=== PATIENT | male | born 1965 | race Caucasian/White ===

== ENCOUNTER 2022-11-07 14:51 | Emergency (ER) | payer MEDICAID ==
[~2022-11-07] VITALS: Ht 182.9 cm; Wt 83.9 kg
[2022-11-07 15:03] VITALS: BP 130/67
[2022-11-08] MEDS ORDERED: OXAYDO5 M1 PO (14:28)
[2022-11-08] MEDS ORDERED: ONDA4ODT MM (14:29)
== END 2022-11-07 17:08 | disposition home or self-care (01) ==
LOC: ER 14:51
DX: K42.9 Umbilical hernia without obstruction or gangrene (principal); Z88.8 Allergy status to other drugs, medicaments and biological substances; Z88.5 Allergy status to narcotic agent; F17.200 Nicotine dependence, unspecified, uncomplicated
CPT/HCPCS: 99283; A9270

== ENCOUNTER 2023-01-17 12:47 | Inpatient (IN) | payer MEDICAID ==
[~2023-01-17] VITALS: Ht 182.9 cm; Wt 78.3 kg
[~2023-01-17 12:47] MED LIST: ONDA4ODT MM; OXAYDO5 M1 PO
[2023-01-17 14:13] LABS: BASOPHILS ABSOLUTE AUTO 0.02 K/mm3 (0.00-0.23); BASOPHILS PERCENT AUTO 2 % (0-2); EOSINOPHILS ABSOLUTE AUTO 0.19 K/mm3 (0.00-0.68); EOSINOPHILS PERCENT AUTO 14 % (0-6); Hematocrit 38.2 % (37.0-53.0); Hemoglobin 13.3 g/dL (13.5-17.5); IMMATURE GRAN PERCENT AUTO 0 % (0-1); LYMPHOCYTES ABSOLUTE AUTO 0.65 K/mm3 (0.84-5.20); LYMPHOCYTES PERCENT AUTO 47 % (21-46); MONOCYTES ABSOLUTE AUTO 0.16 K/mm3 (0.16-1.47); MONOCYTES PERCENT AUTO 12 % (4-13); Mean Corpuscular HGB 32.2 pg (26.0-34.0); Mean Corpuscular HGB Conc 34.8 g/dL (31.5-36.5); Mean Corpuscular Volume 93 fL (80-100); Mean Platelet Volume 12.7 fL (9.1-12.4); NEUTROPHILS ABSOLUTE AUTO 0.35 K/mm3 (1.96-9.15); NEUTROPHILS PERCENT AUTO 26 % (41-73); RDW Coefficient Variation 17.3 % (11.7-14.2); RDW Standard Deviation 58.5 fL (35.1-46.3); Red Blood Cell Count 4.13 M/mm3 (4.30-5.90); White Blood Cell Count 1.37 K/mm3 (4.00-11.30)
[2023-01-17 14:21] LABS: Platelet Count 46 K/mm3 (150-400)
[2023-01-17 14:43] LABS: Alanine Aminotransfer (ALT/SGP 43 U/L (12-78); Albumin, Blood 2.4 g/dL (3.4-5.0); Albumin/Globulin Ratio 0.6 (0.8-1.8); Alk Phos 137 U/L (50-136); Anion Gap 5 mmol/L (6-16); Aspartate Aminotrans (AST/SGOT 64 U/L (12-37); Bilirubin, Total 3.7 mg/dL (0.1-1.0); Blood Urea Nitrogen 6 mg/dL (8-24); Bun/Creatinine Ratio 9.5 (12.0-20.0); CO2, Blood 25 mmol/L (21-32); Calcium, Blood 7.8 mg/dL (8.5-10.1); Chloride, Blood 115 mmol/L (98-108); Creatinine, Blood 0.63 mg/dL (0.60-1.20); Ethanol (Alcohol), Blood, Med <3 mg/dL; Globulin, Blood 4.3 g/dL (2.2-4.0); Glomerular Filtration Rate 112 (60-); Glucose, Blood 86 mg/dL (70-99); Potassium, Blood 2.8 mmol/L (3.5-5.5); Sodium, Blood 145 mmol/L (136-145); Total Protein, Blood 6.7 g/dL (6.4-8.2)
[2023-01-17 18:03] VITALS: BP 130/80
--- NOTE | 2023-01-17 18:35 | NUR ---
1755 RECEIVED PT TO 343 VIA GURNEY FROM ER. PT ADMITTED FOR HEPATIC ENCEPHALOPATHY. ABLE TO TX SELF TO BED WITH 1P ASSIST. PT HAS TREMORS AND SHAKES, UNABLE TO HOLD CUP TO DRINK. PT'S SKIN IS MOTTLED WITH RASH, SCARS, AND SCABS. PT REPORTS IT R/T CIRRHOSIS. PER ER REPORT FROM [facility], PT WITH HX OF HEP C+ AND CIRRHOSIS. PT IS VERY POOR HISTORIAN AND UNABLE TO ANS MOST QUESTIONS, AND DOES NOT KNOW ANY OF THE MEDICATIONS THAT HE TAKES EITHER. PLEASANT AND CO-OP WITH CARE TO PRESENT. IV KCL INFUSING UPON ADMISSION TO . LR TO BE STARTED WHEN COMPLETE. UA TO BE OBTAINED; URINAL PLACED IN BTHRM AND PT INSTRUCTED TO CALL BEFORE GETTING UP. BED ALARM ON FOR SAFETY. CALL LT IN REACH. LACTULOSE GIVEN PER EMAR.
[2023-01-17 19:58] VITALS: BP 114/67
[2023-01-17 22:38] LABS: Source, Urine Clean Catch
[2023-01-17 22:52] LABS: Appearance, Urine Clear (Clear); Blood, Urine Neg (Neg); Color, Urine Amber (P-Yellow); Glucose Qualitative, Urine Neg (Neg); Ketones, Urine Neg (Neg); Leukocyte Esterase, Urine 1+ (Neg); Nitrite, Urine Neg (Neg); Protein, Urine Neg (Neg); Urobilinogen, Urine 4+ (Normal)
[2023-01-17 22:59] LABS: Bilirubin, Urine 2+ (Neg)
[2023-01-17 23:01] LABS: Bacteria Few /hpf; Red Blood Cells, Urine 0-2 /hpf (0-2); Squamous Epithelial Cells Few /hpf (Few)
[2023-01-17 23:04] LABS: U Cannabinoids Screen DETECTED; U Opiates Screen DETECTED
[2023-01-17 23:05] LABS: U Amphetamine Screen Not Detected; U Barbituate Screen Not Detected; U Benzodiazapine Screen Not Detected; U Buprenorphine Screen Not Detected; U Cocaine Screen Not Detected; U Methadone Screen Not Detected; U Methamphetamine Screen Not Detected; U Oxycodone Screen Not Detected; U Phencyclidine Screen Not Detected; U Propoxyphene Screen Not Detected
[2023-01-18 04:39] LABS: BASOPHILS ABSOLUTE AUTO 0.02 K/mm3 (0.00-0.23); BASOPHILS PERCENT AUTO 1 % (0-2); EOSINOPHILS ABSOLUTE AUTO 0.18 K/mm3 (0.00-0.68); EOSINOPHILS PERCENT AUTO 9 % (0-6); Hematocrit 34.1 % (37.0-53.0); Hemoglobin 11.7 g/dL (13.5-17.5); IMMATURE GRAN PERCENT AUTO 0 % (0-1); LYMPHOCYTES ABSOLUTE AUTO 1.01 K/mm3 (0.84-5.20); LYMPHOCYTES PERCENT AUTO 48 % (21-46); MONOCYTES ABSOLUTE AUTO 0.27 K/mm3 (0.16-1.47); MONOCYTES PERCENT AUTO 13 % (4-13); Mean Corpuscular HGB 32.1 pg (26.0-34.0); Mean Corpuscular HGB Conc 34.3 g/dL (31.5-36.5); Mean Corpuscular Volume 94 fL (80-100); NEUTROPHILS ABSOLUTE AUTO 0.61 K/mm3 (1.96-9.15); NEUTROPHILS PERCENT AUTO 29 % (41-73); RDW Coefficient Variation 17.5 % (11.7-14.2); RDW Standard Deviation 59.7 fL (35.1-46.3); Red Blood Cell Count 3.64 M/mm3 (4.30-5.90); White Blood Cell Count 2.09 K/mm3 (4.00-11.30)
--- NOTE | 2023-01-18 04:43 | NUR ---
SHIFT SUMMARY HEENA IS ALERT AND ORIENTED TO SELF, LOCATION, AND SITUATION. 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 HE IS COVERED IN RASHY RED SPOTS THAT ARE DRY AND IN VARIOUS STAGES OF HEALING, HE HAS SEVERE TREMORS IN HIS ARMS AND HANDS THAT INCREASE WITH SMALL MOTOR MOVEMENTS. HE AMBULATES FINE, BUT IS SHAKEY ENOUGH TO WARRANT SUPERVISION. PT IS CONTINENT AND C/O PAIN IN HIS UMBILICUS, HE DECLINES PAIN MEDICATION THIS SHIFT. HE IS CURRENTLY RESTING IN BED AT LOWEST POSITION, WITH CALL LIGHT IN REACH AND BED ALARM ENGAGED
[2023-01-18 05:18] LABS: Mean Platelet Volume 13.6 fL (9.1-12.4); Platelet Count 46 K/mm3 (150-400)
[2023-01-18 05:19] LABS: Albumin, Blood 1.9 g/dL (3.4-5.0); Albumin/Globulin Ratio 0.5 (0.8-1.8); Bilirubin, Total 2.6 mg/dL (0.1-1.0); Bun/Creatinine Ratio 12.2 (12.0-20.0); Calcium, Blood 7.4 mg/dL (8.5-10.1); Creatinine, Blood 0.66 mg/dL (0.60-1.20); Globulin, Blood 3.8 g/dL (2.2-4.0); Percent Saturation 60.7 % (20.0-50.0); Potassium, Blood 3.1 mmol/L (3.5-5.5); Total Protein, Blood 5.7 g/dL (6.4-8.2)
--- NOTE | 2023-01-18 05:38 | NUR ---
THIS WATER QUALITY ANALYST HAS REVIEWED AND AGREES WITH ALL NOTES AND ASSESSMENTS BY CECELIA DE JESUS.
[2023-01-18 06:00] VITALS: BP 115/79
[2023-01-18] MEDS ORDERED: OXYC5 PO (13:34)
[2023-01-18] MEDS ORDERED: ONDA4ODT PO (13:35)
[2023-01-18 15:46] VITALS: BP 111/73
--- NOTE | 2023-01-18 17:53 | NUR ---
SHIFT SUMMARY: PT ORIENTED TO SELF, PERSON AND SITUATION. PT COOPERATIVE WITH CARE. POWERGLIDE PLACED THIS AM BY LANGUAGE INTERPRETER, GEORGINA. POWERGLIDE FLUSHED WELL BUT DOES NOT DRAW. PT RECEIVED 30GM LACTULOSE THREE TIMES THIS SHIFT. PT STATES IT IS TERRIBLE BUT IS ABLE TO TOLERATE WELL. LR INFUSING @100/HR. PT HAVING EXTREMELY INTOLERABLE TWITCHING/TREMORS IN BILAT LEGS, HANDS, AND ARMS. PT HAVING TO BE FED MOST MEALS DUE TO SHAKINESS. PT BECOMES IRRITATED WHEN UNABLE TO ACCOMPLISH TASKS DUE TO TREMOR. PT IS COVERED IN SCATTERED RED RASH. PT STATES IT IS DUE TO CIRRHOSIS. PT RECEIVED ONE TIME DOSE 40MEQ POTASSIUM. NO C/O PAIN OR N/V THIS SHIFT. BED ALARM ON. CALL LIGHT IN REACH. BED IN LOWEST POSITION. WILL CONTINUE TO MONITOR.
[2023-01-18 19:33] VITALS: BP 132/88
--- NOTE | 2023-01-19 04:27 | NUR ---
SHIFT SUMMARY PT IS ALERT AND ORIENTED TO SELF, LOCATION. AND SITUATION. PT IS ABLE TO MAKE NEEDS KNOWN AND HAS CALLED OUT FOR HELP IN PLACE OF HIS CALL LIGHT, REORIENTED PT TO CALL LIGHT T/O SHIFT. PATIENT WAS ABLE TO GET SLEEP OFF AND ON T/O SHIFT WITH UNLABORED, EVEN RESPIRATION. PT'S TEMORS APPEAR TO INCREASE WITH SMALL MOTOR MOVEMENTS. PT BED IS IN THE LOWEST POSITION. CALL LIGHT WITHIN REACH AND EXIT ALARM ENGAGED.
[2023-01-19 04:39] VITALS: BP 109/68
[2023-01-19 06:09] LABS: BASOPHILS ABSOLUTE AUTO 0.02 K/mm3 (0.00-0.23); BASOPHILS PERCENT AUTO 1 % (0-2); EOSINOPHILS ABSOLUTE AUTO 0.18 K/mm3 (0.00-0.68); EOSINOPHILS PERCENT AUTO 11 % (0-6); Hematocrit 32.8 % (37.0-53.0); Hemoglobin 11.3 g/dL (13.5-17.5); IMMATURE GRAN PERCENT AUTO 0 % (0-1); LYMPHOCYTES ABSOLUTE AUTO 0.72 K/mm3 (0.84-5.20); LYMPHOCYTES PERCENT AUTO 43 % (21-46); MONOCYTES PERCENT AUTO 12 % (4-13); Mean Corpuscular HGB 32.8 pg (26.0-34.0); Mean Corpuscular HGB Conc 34.5 g/dL (31.5-36.5); Mean Corpuscular Volume 95 fL (80-100); NEUTROPHILS ABSOLUTE AUTO 0.57 K/mm3 (1.96-9.15); NEUTROPHILS PERCENT AUTO 34 % (41-73); RDW Coefficient Variation 17.2 % (11.7-14.2); RDW Standard Deviation 59.7 fL (35.1-46.3); Red Blood Cell Count 3.45 M/mm3 (4.30-5.90); White Blood Cell Count 1.69 K/mm3 (4.00-11.30)
[2023-01-19 06:22] LABS: Mean Platelet Volume 14.2 fL (9.1-12.4)
[2023-01-19 06:24] LABS: Platelet Count 34 K/mm3 (150-400)
[2023-01-19 06:30] LABS: Albumin, Blood 1.9 g/dL (3.4-5.0); Albumin/Globulin Ratio 0.5 (0.8-1.8); Bilirubin, Total 1.9 mg/dL (0.1-1.0); Bun/Creatinine Ratio 7.3 (12.0-20.0); Calcium, Blood 7.5 mg/dL (8.5-10.1); Creatinine, Blood 0.69 mg/dL (0.60-1.20); Globulin, Blood 3.6 g/dL (2.2-4.0); Total Protein, Blood 5.5 g/dL (6.4-8.2)
[2023-01-19 07:34] VITALS: BP 112/65
[2023-01-19 15:48] VITALS: BP 106/67
--- NOTE | 2023-01-19 18:03 | NUR ---
DAYSHIFT SUMMARY Patient alert & oriented x4, answers questions appropriately. Patient reports liver pain & just feeling unwell. Lactulose QID, patient having loose stools. Ammonia levels continuing to trend down. Plan to stay in hospital, and continue scheduled lactulose. Vitals stable.
[2023-01-19 19:59] VITALS: BP 121/71
--- NOTE | 2023-01-19 21:24 | NUR ---
SET UP PERSON NOTE PT AMBULATED TO BATHROOM INDEPENDENTLY. I DID NOT SEE ANY ISSUES. NOTIFIED NURSE BECAUSE BED ALARM WAS SUPPOSED TO BE ON. NURSE MADE THE DECISION TO KEEP THE ALARM OFF.
[2023-01-20 05:20] VITALS: BP 120/75
--- NOTE | 2023-01-20 05:21 | NUR ---
SHIFT SUMMERY. PT SLEEPING IN BED AT THIS TIME . PT MEDICATED FOR PAIN X2 FOR ABD PAIN. PT UP AT [facility] TO BR PT STEADY ON HIS FEET. CALL LIGHT IN REACH.
[2023-01-20 07:18] VITALS: BP 132/79
[2023-01-20 09:32] LABS: BASOPHILS ABSOLUTE AUTO 0.01 K/mm3 (0.00-0.23); BASOPHILS PERCENT AUTO 1 % (0-2); EOSINOPHILS ABSOLUTE AUTO 0.29 K/mm3 (0.00-0.68); EOSINOPHILS PERCENT AUTO 15 % (0-6); Hematocrit 35.1 % (37.0-53.0); Hemoglobin 12.2 g/dL (13.5-17.5); IMMATURE GRAN PERCENT AUTO 0 % (0-1); LYMPHOCYTES PERCENT AUTO 35 % (21-46); MONOCYTES ABSOLUTE AUTO 0.19 K/mm3 (0.16-1.47); MONOCYTES PERCENT AUTO 10 % (4-13); Mean Corpuscular HGB 32.4 pg (26.0-34.0); Mean Corpuscular HGB Conc 34.8 g/dL (31.5-36.5); Mean Corpuscular Volume 93 fL (80-100); Mean Platelet Volume 11.6 fL (9.1-12.4); NEUTROPHILS ABSOLUTE AUTO 0.81 K/mm3 (1.96-9.15); NEUTROPHILS PERCENT AUTO 41 % (41-73); RDW Coefficient Variation 17.1 % (11.7-14.2); RDW Standard Deviation 58.6 fL (35.1-46.3); Red Blood Cell Count 3.76 M/mm3 (4.30-5.90)
[2023-01-20 09:47] LABS: Platelet Count 39 K/mm3 (150-400)
[2023-01-20 10:03] LABS: Albumin, Blood 1.9 g/dL (3.4-5.0); Albumin/Globulin Ratio 0.4 (0.8-1.8); Bilirubin, Total 2.2 mg/dL (0.1-1.0); Bun/Creatinine Ratio 7.9 (12.0-20.0); Calcium, Blood 7.6 mg/dL (8.5-10.1); Creatinine, Blood 0.63 mg/dL (0.60-1.20); Globulin, Blood 4.4 g/dL (2.2-4.0); Total Protein, Blood 6.3 g/dL (6.4-8.2)
[2023-01-20 15:44] VITALS: BP 122/79
--- NOTE | 2023-01-20 16:38 | NUR ---
SHIFT SUMMARY; PATIENT ASKED TO STAY ONE MORE DAY HE FELT TO TIRED TO GO HOME TODAY. HE IS TO [place] TOMORROW. WILL PLAN ON RETURNING IN 30 DAYS TO [place] WHICH IS HIS PERMANENT HOME. PATIENT IS A AND THIS RN GAVE PATIENT A FEW RESOURCES THAT MAY ASSIST IN HIS DAILY NEEDS. PATIENT COMPLAINS OF PAIN TODAY AND IS MEDICATED X 2 WITH MORPHINE FOR PAIN WITH MUCH SUCCESS. HE IS CURRENTLY UP TO SHOWER AND IS INDEPENDANT WITH HIS ADL'S.
[2023-01-20 20:25] VITALS: BP 128/83
[2023-01-21 02:18] VITALS: BP 102/56
--- NOTE | 2023-01-21 04:04 | NUR ---
SHIFT SUMMARY PATIENT A/Ox4, PLEASANT AND COOPERATIVE. NO C/O PAIN AT TIME OF ASSESSMENT. DID RECEIVE PRN MORPHGINE AT 22:30 FOR C/O PAIN/DISCOMFORT TO LOWER ABD, TOLERATED WELL. VSS, SPO2 97% ON RA. INDEPENDANT IN ROOM TO BATHROOM. MO ACUTE CHANGES NOTED OVERNIGHT. BED IN LOWEST POSITION, CALL LIGHT WITHIN REACH.
[2023-01-21 07:35] VITALS: BP 119/70
[2023-01-21 08:07] LABS: BASOPHILS ABSOLUTE AUTO 0.01 K/mm3 (0.00-0.23); BASOPHILS PERCENT AUTO 1 % (0-2); EOSINOPHILS ABSOLUTE AUTO 0.28 K/mm3 (0.00-0.68); EOSINOPHILS PERCENT AUTO 15 % (0-6); Hematocrit 33.5 % (37.0-53.0); Hemoglobin 11.8 g/dL (13.5-17.5); IMMATURE GRAN PERCENT AUTO 0 % (0-1); LYMPHOCYTES ABSOLUTE AUTO 0.76 K/mm3 (0.84-5.20); LYMPHOCYTES PERCENT AUTO 40 % (21-46); MONOCYTES ABSOLUTE AUTO 0.18 K/mm3 (0.16-1.47); MONOCYTES PERCENT AUTO 10 % (4-13); Mean Corpuscular HGB 32.8 pg (26.0-34.0); Mean Corpuscular HGB Conc 35.2 g/dL (31.5-36.5); Mean Corpuscular Volume 93 fL (80-100); NEUTROPHILS ABSOLUTE AUTO 0.67 K/mm3 (1.96-9.15); NEUTROPHILS PERCENT AUTO 35 % (41-73); RDW Coefficient Variation 17.1 % (11.7-14.2); RDW Standard Deviation 57.2 fL (35.1-46.3)
[2023-01-21 08:13] LABS: Platelet Count 38 K/mm3 (150-400)
[2023-01-21 08:39] LABS: Albumin/Globulin Ratio 0.5 (0.8-1.8); Bilirubin, Total 2.1 mg/dL (0.1-1.0); Bun/Creatinine Ratio 9.2 (12.0-20.0); Calcium, Blood 7.5 mg/dL (8.5-10.1); Creatinine, Blood 0.65 mg/dL (0.60-1.20); Potassium, Blood 3.3 mmol/L (3.5-5.5)
[2023-01-21 08:56] LABS: BASOPHILS PERCENT MAN 0 % (0-2); EOSINOPHILS ABSOLUTE MAN 0.15 K/mm3 (0.00-0.68); EOSINOPHILS PERCENT MAN 8 % (0-6); LYMPHOCYTES ABSOLUTE MAN 0.72 K/mm3 (0.84-5.20); LYMPHOCYTES PERCENT MAN 38 % (21-46); MONOCYTES ABSOLUTE MAN 0.07 K/mm3 (0.16-1.47); MONOCYTES PERCENT MAN 4 % (4-13); NEUTROPHILS ABSOLUTE MAN 0.95 K/mm3 (1.96-9.15); SEG NEUTROPHILS PERCENT MAN 50 % (41-73); TOTAL CELLS COUNTED 50
[2023-01-21] MEDS ORDERED: LACT10SY PO (11:18)
[2023-01-21] MEDS ORDERED: PANT40 PO (11:18)
[2023-01-21] MEDS ORDERED: POTCHL20ER PO (11:19)
--- NOTE | 2023-01-21 12:39 | NUR ---
DISCHARGE SUMMARY PT DISCHARGED THIS SHIFT, AMBULATORY WITH SISTER TO DRIVE HOME. MIDLINE REMOVED PRIOR TO DISCHARGE. DISHCARGE PACKET GIVEN AND MEDS FAXED OVER TO PHARMACY, NO QUESTIONS.
== END 2023-01-21 12:30 | disposition home or self-care (01) | DRG 642 ==
LOC: ER 12:47 → MEDS 16:04 → ENPENDDIS 01-21 10:33 → MEDS 01-21 12:30
PROVIDERS: Student in an Organized Health Care Education/Training Program; ADMIT Family Medicine
DX: E72.20 Disorder of urea cycle metabolism, unspecified (principal); D61.818 Other pancytopenia; E87.0 Hyperosmolality and hypernatremia; E87.6 Hypokalemia; B19.20 Unspecified viral hepatitis C without hepatic coma; K74.60 Unspecified cirrhosis of liver; R94.5 Abnormal results of liver function studies; E86.0 Dehydration; F17.210 Nicotine dependence, cigarettes, uncomplicated; K42.9 Umbilical hernia without obstruction or gangrene; Z88.8 Allergy status to other drugs, medicaments and biological substances; Z88.5 Allergy status to narcotic agent
CPT/HCPCS: 36415; 74176; 80053; 81001; 82140; 82607; 82728; 82746; 82947; 83540; 83550; 83735; 84132; 85025; 87086; 93005; 93010; 96374; 96375; 99285-25; A9270; C1751; C9113; G0480; J2060; J2270; J3480; J7050; J7120

== ENCOUNTER 2023-01-26 14:51 | Inpatient (IN) | payer MEDICAID ==
[~2023-01-26 14:51] MED LIST changes: +LACT10SY PO; +ONDA4ODT PO; +OXYC5 PO; +PANT40 PO; +POTCHL20ER PO
[2023-01-26 15:57] LABS: BASOPHILS ABSOLUTE AUTO 0.02 K/mm3 (0.00-0.23); BASOPHILS PERCENT AUTO 1 % (0-2); EOSINOPHILS ABSOLUTE AUTO 0.32 K/mm3 (0.00-0.68); EOSINOPHILS PERCENT AUTO 15 % (0-6); Hemoglobin 13.3 g/dL (13.5-17.5); IMMATURE GRAN PERCENT AUTO 0 % (0-1); LYMPHOCYTES ABSOLUTE AUTO 0.72 K/mm3 (0.84-5.20); LYMPHOCYTES PERCENT AUTO 34 % (21-46); MONOCYTES ABSOLUTE AUTO 0.19 K/mm3 (0.16-1.47); MONOCYTES PERCENT AUTO 9 % (4-13); Mean Corpuscular HGB 32.7 pg (26.0-34.0); Mean Corpuscular HGB Conc 34.1 g/dL (31.5-36.5); Mean Corpuscular Volume 96 fL (80-100); Mean Platelet Volume 12.3 fL (9.1-12.4); NEUTROPHILS ABSOLUTE AUTO 0.85 K/mm3 (1.96-9.15); NEUTROPHILS PERCENT AUTO 41 % (41-73); RDW Coefficient Variation 17.8 % (11.7-14.2); RDW Standard Deviation 62.8 fL (35.1-46.3); Red Blood Cell Count 4.07 M/mm3 (4.30-5.90)
[2023-01-26 16:13] LABS: Alanine Aminotransfer (ALT/SGP 44 U/L (12-78); Albumin, Blood 2.5 g/dL (3.4-5.0); Albumin/Globulin Ratio 0.5 (0.8-1.8); Alk Phos 124 U/L (50-136); Anion Gap Unable to Calculate mmol/L (6-16); Aspartate Aminotrans (AST/SGOT 66 U/L (12-37); Bilirubin, Direct 0.7 mg/dL (0.0-0.3); Bilirubin, Indirect 1.9 mg/dL (0.1-0.7); Bilirubin, Total 2.6 mg/dL (0.1-1.0); Blood Urea Nitrogen 5 mg/dL (8-24); Bun/Creatinine Ratio 8.4 (12.0-20.0); CO2, Blood 29 mmol/L (21-32); Calcium, Blood 8.3 mg/dL (8.5-10.1); Chloride, Blood 115 mmol/L (98-108); Globulin, Blood 4.9 g/dL (2.2-4.0); Glomerular Filtration Rate 114 (60-); Glucose, Blood 93 mg/dL (70-99); Potassium, Blood 3.3 mmol/L (3.5-5.5); Sodium, Blood 143 mmol/L (136-145); Total Protein, Blood 7.4 g/dL (6.4-8.2)
[2023-01-26 16:20] LABS: Platelet Count 48 K/mm3 (150-400)
[2023-01-26 18:50] LABS: Acetaminophen, Random <2.0 ug/mL (10.0-30.0); Salicylate <1.7 mg/dL (2.8-20.0)
[2023-01-26 20:09] LABS: U Amphetamine Screen Not Detected; U Barbituate Screen Not Detected; U Benzodiazapine Screen Not Detected; U Buprenorphine Screen Not Detected; U Cannabinoids Screen DETECTED; U Cocaine Screen Not Detected; U Methadone Screen Not Detected; U Methamphetamine Screen Not Detected; U Opiates Screen Not Detected; U Oxycodone Screen Not Detected; U Phencyclidine Screen Not Detected; U Propoxyphene Screen Not Detected
[2023-01-26 23:47] LABS: Magnesium, Blood 1.8 mg/dL (1.6-2.4)
[2023-01-27] MEDS ORDERED: CONSTULOSE10 GM/155 PO (00:11)
[2023-01-27] MEDS ORDERED: LACT10SY PO (00:12)
[2023-01-27 00:41] LABS: Source, Urine Clean Catch
[2023-01-27 00:43] LABS: BASOPHILS ABSOLUTE AUTO 0.03 K/mm3 (0.00-0.23); BASOPHILS PERCENT AUTO 1 % (0-2); EOSINOPHILS ABSOLUTE AUTO 0.34 K/mm3 (0.00-0.68); EOSINOPHILS PERCENT AUTO 15 % (0-6); Hematocrit 35.1 % (37.0-53.0); IMMATURE GRAN PERCENT AUTO 0 % (0-1); LYMPHOCYTES ABSOLUTE AUTO 0.92 K/mm3 (0.84-5.20); LYMPHOCYTES PERCENT AUTO 41 % (21-46); MONOCYTES ABSOLUTE AUTO 0.21 K/mm3 (0.16-1.47); MONOCYTES PERCENT AUTO 9 % (4-13); Mean Corpuscular HGB 32.7 pg (26.0-34.0); Mean Corpuscular HGB Conc 34.2 g/dL (31.5-36.5); Mean Corpuscular Volume 96 fL (80-100); Mean Platelet Volume 11.8 fL (9.1-12.4); NEUTROPHILS ABSOLUTE AUTO 0.76 K/mm3 (1.96-9.15); NEUTROPHILS PERCENT AUTO 34 % (41-73); RDW Coefficient Variation 17.7 % (11.7-14.2); RDW Standard Deviation 62.2 fL (35.1-46.3); Red Blood Cell Count 3.67 M/mm3 (4.30-5.90); White Blood Cell Count 2.26 K/mm3 (4.00-11.30)
[2023-01-27 00:44] LABS: Platelet Count 50 K/mm3 (150-400)
[2023-01-27 00:47] LABS: Bilirubin, Urine Neg (Neg); Blood, Urine 1+ (Neg); Glucose Qualitative, Urine Neg (Neg); Ketones, Urine Neg (Neg); Leukocyte Esterase, Urine Neg (Neg); Nitrite, Urine Neg (Neg); Protein, Urine 1+ (Neg); Urobilinogen, Urine 2+ (Normal)
[2023-01-27 00:53] LABS: Appearance, Urine Clear (Clear); Color, Urine Amber (P-Yellow)
[2023-01-27 00:55] LABS: International Normalized Ratio 1.66; Prothrombin Time Results 16.9 Sec (9.7-11.5)
[2023-01-27 00:58] LABS: Bacteria Not Seen /hpf; Red Blood Cells, Urine 0-2 /hpf (0-2); Squamous Epithelial Cells Few /hpf (Few); White Blood Cells, Urine Not Seen /hpf (0-5)
--- NOTE | 2023-01-27 02:38 | NUR ---
ADMIT NOTE- PT ADMITTED TO MEDICAL FLOOR TELEPHONE REPORT COMPLETED, PT TO BE TRANSPORTED TO MEDICAL FLOOR BY [facility]. PER REPORT PT ABLE TO TOLLERATE PO LACTULOSE SO ENEMA NOT NEEDED. WILL EVALUATE WHEN THE PT ARRIVES ON MEDICAL FLOOR.
[2023-01-27 03:16] VITALS: BP 115/74
--- NOTE | 2023-01-27 06:12 | NUR ---
SHIFT SUMMMARY- PT ADMITTED THROUGH THE ED FOR HEPATIC ENCEPHALOPATHY. PT RECIEVING LACTULOSE PO. SKIN ASSESSMENT SHOWS SCABBING ON THE PT KNEES AND SHINS. UNABLE TO DISCUSS THE PT MEDS WITH HIM D/T HIS CONFUSION. PT IN BED, CALL LIGHT IN REACH.
[2023-01-27 06:34] LABS: Albumin, Blood 1.8 g/dL (3.4-5.0); Albumin/Globulin Ratio 0.5 (0.8-1.8); Bilirubin, Total 2.6 mg/dL (0.1-1.0); Bun/Creatinine Ratio 9.5 (12.0-20.0); Calcium, Blood 7.3 mg/dL (8.5-10.1); Creatinine, Blood 0.63 mg/dL (0.60-1.20); Globulin, Blood 3.6 g/dL (2.2-4.0); Potassium, Blood 3.2 mmol/L (3.5-5.5)
[2023-01-27 06:37] LABS: Total Protein, Blood 5.4 g/dL (6.4-8.2)
--- NOTE | 2023-01-27 09:00 | NUR ---
pt laying in bed awake a/ox3, a bit forgetful at times, and sleepy, coopertive with care, follows commands well, reports discomfort in his stomach, lungs are clear dim in bases, resp even and unlabored, no cough noted, hrr, no edema noted, ppp+2, cap refill <3sec, vs stable, afebrile, iv to rfa and lhand, sites are clear and patent, btx4, abd flat soft nontender, voids without diff, skin c/w/d, maew, chela, call light in reach.
[2023-01-27 09:18] VITALS: BP 110/64
[2023-01-27 15:49] VITALS: BP 119/71
--- NOTE | 2023-01-27 19:40 | NUR ---
pt is pretty clear mentally, is getting up pretty indep, and urgently to have very loose stools, held this late afternoons dose of lactulose due to loose stools, is somewhat incont, no surg was scheduled so was able to have a diet, no further changes this shift. call light in reach.
[2023-01-28 05:19] VITALS: BP 101/66
--- NOTE | 2023-01-28 05:29 | NUR ---
SHIFT SUMMARY 57 YR M ADMITTED ON 01/27/23 FOR HEPATIC ENCEPHALOPATHY. FULL CODE. PT HAD 3 UNCONTROLLED, WATERY BM'S THIS SHIFT SO EVENING DOSE WAS HELD PER PT REQUEST. HE HAS SLEPT FOR MOST OF THIS SHIFT AFTER THE WATERY BOWELS SLOWED DOWN. HE IS PLEASANT AND COOPERATIVE WITH CARE. BED IN LOW POSITION AND CALL LIGHT IN REACH.
[2023-01-28 06:13] LABS: Albumin, Blood 1.7 g/dL (3.4-5.0); Albumin/Globulin Ratio 0.4 (0.8-1.8); Bilirubin, Total 1.4 mg/dL (0.1-1.0); Bun/Creatinine Ratio 12.3 (12.0-20.0); Calcium, Blood 7.3 mg/dL (8.5-10.1); Creatinine, Blood 0.65 mg/dL (0.60-1.20); Magnesium, Blood 1.8 mg/dL (1.6-2.4); Potassium, Blood 3.5 mmol/L (3.5-5.5); Total Protein, Blood 5.7 g/dL (6.4-8.2)
[2023-01-28 07:14] VITALS: BP 109/66
[2023-01-28] MEDS ORDERED: CIPR500 PO (11:04)
--- NOTE | 2023-01-28 13:03 | NUR ---
PATIENT RIDE ARRIVED AND PATIENT LEFT UNIT AT 1240 WITH FAMILY, AMBULATING AND LEAVING PRIVATE VEHICLE. IV ALREADY OUT AND PATIENT SIGNATURES PREVIOUSLY OBTAINED, PATIENT HAS HIS EDUCATION PACKET IN HAND.
--- NOTE | 2023-01-28 14:46 | NUR ---
Patient mentation is improved, AOx4. Continuing to have diarrhea d/t lactulose. Ammonia levels trending down, stated patient is medically stable. Reviewed discharge teaching with patient, pt verbalized understanding. Stated he is going back to [place] , and does not plan to find a local PCP. Patient left medical unit at 1230.
== END 2023-01-28 12:42 | disposition home or self-care (01) | DRG 443 ==
LOC: ER 14:51 → MEDS 01-27 00:12 → ERHOLD 01-27 00:12 → MEDS 01-27 02:52 → ENPENDDIS 01-28 10:26 → MEDS 01-28 12:42
PROVIDERS: Emergency Medicine; Internal Medicine; Physician Assistant; ADMIT Internal Medicine
DX: K76.82 Hepatic encephalopathy (principal); K74.60 Unspecified cirrhosis of liver; B19.20 Unspecified viral hepatitis C without hepatic coma; E87.6 Hypokalemia; E83.42 Hypomagnesemia; D69.6 Thrombocytopenia, unspecified; K42.9 Umbilical hernia without obstruction or gangrene; Z88.8 Allergy status to other drugs, medicaments and biological substances; Z79.891 Long term (current) use of opiate analgesic; Z79.899 Other long term (current) drug therapy; Z87.891 Personal history of nicotine dependence
CPT/HCPCS: 36415; 71046; 74177; 80048; 80053; 80076; 81001; 82140; 82550; 83605; 83735; 83880; 84443; 85025; 85610; 96374-59; 96375; 99285-25; A9270; G0480; J0696; J1885; J2405; J3010; J3475; J3480; J7030; J7050; Q9967